=== PATIENT | male | born 1940 | race Caucasian/White ===

== ENCOUNTER 2023-02-16 10:54 | Emergency (ER) | payer MEDICARE, SELFPAY ==
[2023-02-16] VITALS (9 sets, daily range): BP systolic 173–198; BP diastolic 61–93; PULSE 66; RESP 18; TEMP 36.7; O2SAT 96; BMI 31.4
--- NOTE | 2023-02-16 11:38 | ECG_ITS ---
[facility] [place] Test Date: 2023-02-16 Pat Name: DANICA TAPIA Department: Room: - Gender: Male [employer]: : 1940 Requested By: Rick Sena Order Number: [id number] Reading MD: BONNIE KAY Measurements Intervals [place] Rate: 65 P: 37 NM: 140 QRS: 59 QRSD: 74 T: 41 QT: 398 QTc: 410 Interpretive Statements 1100 Sinus rhythm 1108 Marked sinus arrhythmia 4068 Nonspecific Twave abnormality 8102 Low QRS voltage in chest leads 9130 borderline ECG No previous ECG available for comparison Electronically Signed On 02-17-2023 9:53:16 EDT by BONNIE KAY
--- NOTE | 2023-02-16 11:39 | XR_ITS ---
The [place] [id number] Patient Name: DANICA TAPIA MRN: [id number] date: 1940 Sex: M Assigned Patient Location: ED.MAIN Current Patient Location: ER Accession/Order Number: [id number] Exam Date: 02/16/2023 12:00 Report Date: 02/16/2023 12:26 At the request of: INGRID SIMEON Procedure: XR chest 2V XR chest 2V 02/16/2023 12:00 PM EDT INDICATION: Dyspnea COMPARISON: Radiograph the chest 09/14/2022 FINDINGS: Cardiomegaly with prominence of the central pulmonary vasculature. 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 Small amount of fissural fluid with curly B lines in the lower lobes bilaterally. No pneumothorax. No lobar consolidation. Osteopenia. No acute fracture or dislocation. XR/XR chest 2V IMPRESSION: Mild cardiogenic pulmonary edema. Electronically authenticated by: RAMA HERNANDEZ Date: 02/16/2023 12:26
[2023-02-16 11:53] LABS: Basophils Absolute Auto 0.1 10^3/uL (0.0-0.1); Basophils Percent Auto 0.7 % (0.2-2.0); Eosinophils Absolute Auto 0.3 10^3/uL (0.0-0.7); Eosinophils Percent Auto 2.8 % (0.9-7.0); Hematocrit 36.8 % (42.0-54.0); Hemoglobin 12.3 g/dL (14.0-18.0); Immature Granulocytes Abs Auto 0.11 10^3/uL (0.00-0.03); Immature Granulocytes Pct Auto 1.1 % (0.0-0.5); Lymphocytes Absolute Auto 1.4 10^3/uL (1.2-3.8); Lymphocytes Percent Auto 14.7 % (20.5-60.0); Mean Corpuscular HGB Conc 33.4 g/dL (29.9-35.2); Mean Corpuscular Hemoglobin 31.3 pg (25.9-34.0); Mean Corpuscular Volume 93.6 fL (80.0-94.0); Mean Platelet Volume 10.4 fL (9.5-13.5); Monocytes Percent Auto 10.3 % (1.7-12.0); Neutrophils Absolute Auto 6.8 10^3/uL (1.4-6.5); Neutrophils Percent Auto 70.4 % (43.0-75.0); Platelet Count 189 10^3/uL (150-450); Red Blood Count 3.93 10^6/uL (4.70-6.10); Red Cell Distribution Width 14.3 % (11.0-15.0); White Blood Count 9.6 10^3/uL (4.0-11.0)
[2023-02-16] MEDS: IPRATROPIUM/ALBUTEROL SULFATE 3 ML AMPUL.NEB IH (12:00)
[2023-02-16 12:14] LABS: Creatine Kinase 33 U/L (39-308); Myoglobin 88 ng/mL (16-96); Troponin I High Sensitivity 16.6 pg/mL (4.0-76.1)
--- NOTE | 2023-02-16 12:18 | ED_ITS ---
Documented by User: JENNIFER Hansen 02/16/23 13:44 HPI - General Adult General Chief complaint: Shortness of Breath/Dyspnea Stated complaint: shortness of breath Time Seen by Provider: 02/16/23 12:00 Source: patient Mode of arrival: walk-in History of Present Illness HPI narrative: patient is a 82-year-old male who presents to the Emergency Room with concerns of shortness of breath. Patient states last night around 3:30 AM he awoke with shortness of breath. He denies any cough or fever. States he noted wheezing, and also had a mild headache at the time. Patient states the headache has since fully resolved. He denies any recent long travels or flights, did have cataract surgery. Patient states he has had this in the past with his chronic obstructive pulmonary disease exacerbations. He denies any significant edema in his lower legs but has had swelling transiently in the past. Patient denies chest pain or visual disturbance. Related Data Home Medications Medication Instructions Recorded Confirmed bumetanide 0.5 mg tablet 0.25 mg PO DAILY PRN edema 02/16/23 02/16/23 olmesartan 40 mg tablet 40 mg PO DAILY 02/16/23 02/16/23 spironolactone 25 mg tablet 25 mg PO DAILY 02/16/23 02/16/23 Previous Rx's Medication Instructions Recorded prednisone 20 mg tablet 40 mg PO DAILY 5 days #10 tabs 02/16/23 Allergies Allergy/AdvReac Type Severity Reaction Status Date / Time meperidine [From Demerol] Allergy Severe Verified 02/16/23 11:10 Review of Systems ROS Constitutional Denies: fever or chills Eyes Denies: change in vision Ears, nose, mouth, and throat Denies: throat pain Cardiovascular Reports: swelling of feet/ankles; Denies: chest pain, palpitations or edema Respiratory Reports: shortness of breath and wheezing Gastrointestinal Denies: abdominal pain, nausea or vomiting Genitourinary Denies: painful urination Integumentary/Breast Denies: rash or redness Neurological Reports: headache (this morning, resolved.) [facility] Medical History (Updated 02/16/23 @ 13:08 by JENNIFER Hansen) Exam Narrative Exam Narrative: Nurses notes and vital signs reviewed and patient is not hypoxic. General: The patient appears well and in no apparent distress. Patient is resting comfortably on cart. Skin: Warm, dry, no pallor noted. Head: Normocephalic, atraumatic Neck: Supple, trachea mid-line, no tenderness, no lymphadenopathy Eye: Pupils are equal, round and reactive to light, EOMI Ears, Nose, Mouth, and Throat: TM are clear, normal light reflex, oral mucosa is moist, no posterior oropharynx erythema or hypertrophy, uvula is mid-line Cardiovascular: Regular Rate and Rhythm Respiratory: Patient is in no distress, no accessory muscle use, lungs are clear to auscultation,with expiratory wheezes noted, no rales or rhonchi. Chest Wall: no tenderness Back: non-tender, no CVA tenderness Musculoskeletal: normal ROM, no tenderness, no swelling, no pitting edema are sacral edema appreciated GI: Normal bowel sounds, no tenderness to palpation, no masses appreciated. No rebound, guarding, or rigidity noted. Neurological: A&O x4 Psychiatric: Cooperative Constitutional Vital Signs, click to edit/add: Last Vital Signs Temp 98.1 F 02/16/23 11:10 Pulse 66 02/16/23 11:10 Resp 18 02/16/23 11:10 BP 198/92 H 02/16/23 14:00 Pulse Ox 96 02/16/23 11:28 O2 Del Method Room Air 02/16/23 11:28 Course Vital Signs Vital signs: Vital Signs Temperature 98.1 F 02/16/23 11:10 Pulse Rate 66 02/16/23 11:10 Respiratory Rate 18 02/16/23 11:10 Blood Pressure 190/78 H 02/16/23 11:10 Pulse Oximetry 96 02/16/23 11:10 Oxygen Delivery Method Room Air 02/16/23 11:10 Temperature 98.1 F 02/16/23 11:10 Pulse Rate 66 02/16/23 11:10 Respiratory Rate 18 02/16/23 11:10 Blood Pressure 198/92 H 02/16/23 14:00 Pulse Oximetry 96 02/16/23 11:28 Oxygen Delivery Method Room Air 02/16/23 11:28 Medical Decision Making MDM Narrative Medical decision making narrative: patient presents with mild expiratory wheeze, shortness of breath. He denies any cough or fever. Denies chest pain, states he awoke with shortness of breath, headache, headache is since resolved, shortness of breath has continued. Patient notes his blood pressure has been up intermittently. We discussed his symptoms and he received a DuoNeb treatment, noting some improvement in his breathing and additional albuterol was ordered along with Solu-Medrol IV. Pending chest x-ray and laboratory studies and symptomatically evaluation at this time. patient reevaluated, after the breathing treatments patient notedd to be much improved, IV Solu-Medrol, patient was supposed to be on oral steroids recently for gout, but stopped early, he was also prescribed a BiPAP for sleeping at night and the mask has recently been ordered by his PCP. We discussed a combination of symptoms that are affecting his breathing including but not limited to his chronic obstructive pulmonary disease and possible mild fluid retention. Patient has a scheduled follow-up with his family doctor next week and intensive discuss his medications. He is agreeable to a five day prescription of prednisone today, has his inhalers at home and will return to the Emergency Room especially going into the weekend if any symptoms worsen or new symptoms develop.patient prefers to be discharged home rather than admitted. The patient is to followup with primary care physician in next 3-5 days or to return to the emergency department should any of the signs or symptoms worsen or new symptoms develop. Patient had questions answered. The patient agrees with the following Diagnosis and Treatment plan and the patient will be discharged home. Lab Data Lab results reviewed: Yes I reviewed the patient's lab results Labs: Lab Results 02/16/23 Range/Units 11:26 WBC 9.6 (4.0-11.0) 10^3/uL RBC 3.93 L (4.70-6.10) 10^6/uL Hgb 12.3 L (14.0-18.0) g/dL Hct 36.8 L (42.0-54.0) % MCV 93.6 (80.0-94.0) fL MCH 31.3 (25.9-34.0) pg MCHC 33.4 (29.9-35.2) g/dL RDW 14.3 (11.0-15.0) % Plt Count 189 (150-450) 10^3/uL MPV 10.4 (9.5-13.5) fL Neut % (Auto) 70.4 (43.0-75.0) % Lymph % (Auto) 14.7 L (20.5-60.0) % Amador % (Auto) 10.3 (1.7-12.0) % Eos % (Auto) 2.8 (0.9-7.0) % Baso % (Auto) 0.7 (0.2-2.0) % Neut # (Auto) 6.8 H (1.4-6.5) 10^3/uL Lymph # (Auto) 1.4 (1.2-3.8) 10^3/uL [place] # (Auto) 1.0 H (0.3-0.8) 10^3/uL Eos # (Auto) 0.3 (0.0-0.7) 10^3/uL Baso # (Auto) 0.1 (0.0-0.1) 10^3/uL Abs Immat Gran (auto) 0.11 H (0.00-0.03) 10^3/uL Imm/Tot Granulo (auto) 1.1 H (0.0-0.5) % Total Creatine Kinase 33 L (39-308) U/L CK-MB (CK-2) 0.90 (<=3.60) ng/mL Myoglobin 88 (16-96) ng/mL Troponin I High Sens 16.6 (4.0-76.1) pg/mL NT-Pro-B Natriuret Pep 2196.0 H* (<=1800.0) pg/mL Imaging Data Chest x-ray: Radiologist's impression: Procedure: XR chest 2V XR chest 2V 02/16/2023 12:00 PM EDT INDICATION: Dyspnea COMPARISON: Radiograph the chest 09/14/2022 FINDINGS: Cardiomegaly with prominence of the central pulmonary vasculature. 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 Small amount of fissural fluid with curly B lines in the lower lobes bilaterally. No pneumothorax. No lobar consolidation. Osteopenia. No acute fracture or dislocation. IMPRESSION: Mild cardiogenic pulmonary edema. Electronically authenticated by: RAMA HERNANDEZ Date: 02/16/2023 12:26 ECG Data Attestation: I personally reviewed and interpreted this ECG as follows: Interpretation: EKG interpretation: Emergency Department physician interpretation, normal sinus rhythm, no ectopy, no ST segment elevation, normal axis. Discharge Plan Discharge Chief Complaint: Shortness of Breath/Dyspnea Clinical Impression: Congestive heart failure, Acute exacerbation of chronic obstructive pulmonary disease Patient Disposition: Home, Self-Care Time of Disposition Decision: 13:42 Condition: Good Prescriptions / Home Meds: New prednisone 20 mg tablet 40 mg PO DAILY 5 Days Qty: 10 0RF No Action bumetanide 0.5 mg tablet 0.25 mg PO DAILY PRN (Reason: edema) olmesartan 40 mg tablet 40 mg PO DAILY spironolactone 25 mg tablet 25 mg PO DAILY Instructions: Heart Healthy Diet (ED), COPD (Chronic Obstructive Pulmonary Disease) (ED), Fluid Restriction (ED) Stand Alone Forms: Portal Instructions Referrals: MARISOL MOORE [Primary Care Provider] - 1 week Discharge Date/Time: 02/16/23 14:04 Documented by User: Josesito Mead MD 02/16/23 19:48 HPI - General Adult General Chief complaint: Shortness of Breath/Dyspnea Stated complaint: shortness of breath Time Seen by Provider: 02/16/23 12:00 Related Data Home Medications Medication Instructions Recorded Confirmed bumetanide 0.5 mg tablet 0.25 mg PO DAILY PRN edema 02/16/23 02/16/23 olmesartan 40 mg tablet 40 mg PO DAILY 02/16/23 02/16/23 spironolactone 25 mg tablet 25 mg PO DAILY 02/16/23 02/16/23 Previous Rx's Medication Instructions Recorded prednisone 20 mg tablet 40 mg PO DAILY 5 days #10 tabs 02/16/23 Allergies Allergy/AdvReac Type Severity Reaction Status Date / Time meperidine [From Demerol] Allergy Severe Verified 02/16/23 11:10 [facility] Medical History (Updated 02/16/23 @ 13:08 by JENNIFER Hansen) Exam Constitutional Vital Signs, click to edit/add: Last Vital Signs Temp 98.1 F 02/16/23 11:10 Pulse 66 02/16/23 11:10 Resp 18 02/16/23 11:10 BP 198/92 H 02/16/23 14:00 Pulse Ox 96 02/16/23 11:28 O2 Del Method Room Air 02/16/23 11:28 Course Vital Signs Vital signs: Vital Signs Temperature 98.1 F 02/16/23 11:10 Pulse Rate 66 02/16/23 11:10 Respiratory Rate 18 02/16/23 11:10 Blood Pressure 190/78 H 02/16/23 11:10 Pulse Oximetry 96 02/16/23 11:10 Oxygen Delivery Method Room Air 02/16/23 11:10 Temperature 98.1 F 02/16/23 11:10 Pulse Rate 66 02/16/23 11:10 Respiratory Rate 18 02/16/23 11:10 Blood Pressure 198/92 H 02/16/23 14:00 Pulse Oximetry 96 02/16/23 11:28 Oxygen Delivery Method Room Air 02/16/23 11:28 Medical Decision Making MDM Narrative Medical decision making narrative: patient presents with mild expiratory wheeze, shortness of breath. He denies any cough or fever. Denies chest pain, states he awoke with shortness of breath, headache, headache is since resolved, shortness of breath has continued. Patient notes his blood pressure has been up intermittently. We discussed his symptoms and he received a DuoNeb treatment, noting some improvement in his breathing and additional albuterol was ordered along with Solu-Medrol IV. Pending chest x-ray and laboratory studies and symptomatically evaluation at this time. patient reevaluated, after the breathing treatments patient notedd to be much improved, IV Solu-Medrol, patient was supposed to be on oral steroids recently for gout, but stopped early, he was also prescribed a BiPAP for sleeping at night and the mask has recently been ordered by his PCP. We discussed a combination of symptoms that are affecting his breathing including but not limited to his chronic obstructive pulmonary disease and possible mild fluid retention. Patient has a scheduled follow-up with his family doctor next week and intensive discuss his medications. He is agreeable to a five day prescription of prednisone today, has his inhalers at home and will return to the Emergency Room especially going into the weekend if any symptoms worsen or new symptoms develop.patient prefers to be discharged home rather than admitted. The patient is to followup with primary care physician in next 3-5 days or to return to the emergency department should any of the signs or symptoms worsen or new symptoms develop. Patient had questions answered. The patient agrees with the following Diagnosis and Treatment plan and the patient will be discharged home. Dr Mead note: Patient was seen and evaluated with the PA. Lab Data Labs: Lab Results 02/16/23 Range/Units 11:26 WBC 9.6 (4.0-11.0) 10^3/uL RBC 3.93 L (4.70-6.10) 10^6/uL Hgb 12.3 L (14.0-18.0) g/dL Hct 36.8 L (42.0-54.0) % MCV 93.6 (80.0-94.0) fL MCH 31.3 (25.9-34.0) pg MCHC 33.4 (29.9-35.2) g/dL RDW 14.3 (11.0-15.0) % Plt Count 189 (150-450) 10^3/uL MPV 10.4 (9.5-13.5) fL Neut % (Auto) 70.4 (43.0-75.0) % Lymph % (Auto) 14.7 L (20.5-60.0) % Amador % (Auto) 10.3 (1.7-12.0) % Eos % (Auto) 2.8 (0.9-7.0) % Baso % (Auto) 0.7 (0.2-2.0) % Neut # (Auto) 6.8 H (1.4-6.5) 10^3/uL Lymph # (Auto) 1.4 (1.2-3.8) 10^3/uL [place] # (Auto) 1.0 H (0.3-0.8) 10^3/uL Eos # (Auto) 0.3 (0.0-0.7) 10^3/uL Baso # (Auto) 0.1 (0.0-0.1) 10^3/uL Abs Immat Gran (auto) 0.11 H (0.00-0.03) 10^3/uL Imm/Tot Granulo (auto) 1.1 H (0.0-0.5) % Total Creatine Kinase 33 L (39-308) U/L CK-MB (CK-2) 0.90 (<=3.60) ng/mL Myoglobin 88 (16-96) ng/mL Troponin I High Sens 16.6 (4.0-76.1) pg/mL NT-Pro-B Natriuret Pep 2196.0 H* (<=1800.0) pg/mL Critical Care Time Critical Care Time Attestation: Discharge Plan Discharge Chief Complaint: Shortness of Breath/Dyspnea Clinical Impression: Congestive heart failure, Acute exacerbation of chronic obstructive pulmonary disease Patient Disposition: Home, Self-Care Time of Disposition Decision: 13:42 Condition: Good Prescriptions / Home Meds: New prednisone 20 mg tablet 40 mg PO DAILY 5 Days Qty: 10 0RF No Action bumetanide 0.5 mg tablet 0.25 mg PO DAILY PRN (Reason: edema) olmesartan 40 mg tablet 40 mg PO DAILY spironolactone 25 mg tablet 25 mg PO DAILY Instructions: Heart Healthy Diet (ED), COPD (Chronic Obstructive Pulmonary Disease) (ED), Fluid Restriction (ED) Stand Alone Forms: Portal Instructions Referrals: MARISOL MOORE [Primary Care Provider] - 1 week Discharge Date/Time: 02/16/23 14:04
[2023-02-16] MEDS: METHYLPREDNISOLONE SOD SUCC PF 125 MG/2 ML VIAL IVP (12:45)
== END 2023-02-16 14:04 | disposition home or self-care (01) ==
PROVIDERS: Emergency Provider Emergency Medicine; PCP Family Medicine
DX: J44.1 Chronic obstructive pulmonary disease with (acute) exacerbation (principal); I50.9 Heart failure, unspecified; Z79.899 Other long term (current) drug therapy
CPT/HCPCS: 36415; 71046; 82550; 82553; 83874; 83880; 84484; 85025; 93005; 94640; 96374; 99285; J2930

== ENCOUNTER 2024-07-17 09:15 | Outpatient (RCR) | payer MEDICARE, SELFPAY | END 2024-07-29 14:58 | disposition home or self-care (01) | LOC: PT 09:15 | PROVIDERS: PCP Family Medicine; Visit Provider Anesthesiology | DX: M54.59 Other low back pain (principal) | CPT/HCPCS: 97012; 97110; 97140; 97162 ==

== ENCOUNTER 2024-07-30 11:52 | Outpatient (RCR) | payer MEDICARE, SELFPAY | END 2024-08-01 09:17 | disposition home or self-care (01) | LOC: PT 11:52 | PROVIDERS: PCP Family Medicine; Visit Provider Anesthesiology | DX: M54.59 Other low back pain (principal) ==